=== PATIENT | female | born 1970 | race Caucasian/White ===

== ENCOUNTER 2021-08-09 15:47 | Outpatient (REF) | payer BC, SELFPAY ==
--- NOTE | ~2021-08-09 | CT_ITS ---
EXAMINATION: CT CHEST WITHOUT CONTRAST CLINICAL INFORMATION: Emphysema. Hemoptysis. COMPARISON: Radiograph 06/25/2021 TECHNIQUE: Multidetector volumetric CT imaging of the chest was done. Axial MIP volume rendering provided. Sagittal and coronal reformatted images were obtained. This CT examination was performed using dose optimization techniques as appropriate, variously including the following: *Automated exposure control *Adjustment of mA and/or kV according to patient size (this includes techniques or standardized protocols for targeted exams where dose is matched to indication/reason for exam; i.e. extremities or head) *Use of iterative reconstruction technique DLP: 239 mGy-cm FINDINGS: [place]: Unremarkable. LUNGS: The central airways are patent. There is no consolidation. Minimal atelectasis in the lingula noted. Minimal dependent left basilar atelectasis. No pneumothorax. No pulmonary nodules identified. Probable fissural lymph node in the right lower lobe along the right minor fissure which measures 0.5 cm. MEDIASTINUM: Normal heart size. No pericardial effusion. No mediastinal lymphadenopathy. Scattered coronary artery calcifications. 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 PLEURA: There is no pleural effusion. No pleural mass or thickening. AXILLA: No lymphadenopathy. UPPER ABDOMEN: No acute abnormality. Cholecystectomy. OSSEOUS STRUCTURES: No acute or suspicious osseous abnormality. Mild degenerative changes of the spine. CT/CT chest wo con IMPRESSION: Minimal atelectasis noted in the lungs. Otherwise clear lungs. Fleischner guidelines were followed.
== END 2021-08-09 15:48 | disposition home or self-care (01) ==
LOC: HO.CT 15:47
PROVIDERS: Visit Provider Family Medicine
DX: R04.2 Hemoptysis (principal); J43.9 Emphysema, unspecified; Z90.49 Acquired absence of other specified parts of digestive tract
CPT/HCPCS: 71250